=== PATIENT | female | born 1980 | race Two or more races ===

== ENCOUNTER 2019-09-29 09:10 | Emergency (ER) | payer SELFPAY ==
[~2019-09-29] VITALS: Ht 170.2 cm; Wt 74.8 kg
[2019-09-29 09:19] VITALS: BP 113/68
== END 2019-09-29 09:37 | disposition home or self-care (01) ==
LOC: ER 09:10
DX: J06.9 Acute upper respiratory infection, unspecified (principal)

== ENCOUNTER 2024-04-21 00:46 | Emergency (ER) | payer OTHER ==
[~2024-04-21] VITALS: Ht 172.7 cm; Wt 63.0 kg
[2024-04-21] MEDS ORDERED: ONDANSETRON 4 MG TAB.RAPDIS ONE (01:23)
[2024-04-21] MEDS: ONDANSETRON 4 MG TAB.RAPDIS SL ONE (01:25)
[2024-04-21] MEDS ORDERED: FAMOTIDINE/PF INJ 20 MG/2 ML VIAL IV ONE (01:51)
[2024-04-21] MEDS ORDERED: methylPREDNISolone SOD SUCC 125 MG/2ML VIAL ONE (01:51)
[2024-04-21] MEDS ORDERED: diphenhydrAMINE HCL 50 MG/ML VIAL ONE (01:51)
[2024-04-21] MEDS ORDERED: KETOROLAC TROMETHAMINE 15 MG/ML VIAL ONE (01:51)
[2024-04-21] MEDS: methylPREDNISolone SOD SUCC 125 MG/2ML VIAL IV ONE (02:02)
[2024-04-21] MEDS: diphenhydrAMINE HCL 50 MG/ML VIAL IV ONE (02:02)
[2024-04-21] MEDS: KETOROLAC TROMETHAMINE 15 MG/ML VIAL IV ONE (02:02)
[2024-04-21] MEDS: FAMOTIDINE/PF INJ 20 MG/2 ML VIAL IV ONE (02:02)
[2024-04-21] MEDS: IV NS 0.9% 1,000 ML BAG IV ONE (02:02)
[2024-04-21] MEDS ORDERED: PRED50TA PO (03:09)
[2024-04-21] MEDS ORDERED: ONDA4TAB11 PO (03:10)
[2024-04-21] MEDS ORDERED: KETO10TA2 PO (03:10)
[2024-04-21 03:23] VITALS: BP 115/74; O2SAT 97
== END 2024-04-21 03:23 | disposition home or self-care (01) ==
LOC: ER 00:48
DX: T78.49XA Other allergy, initial encounter (principal); L50.9 Urticaria, unspecified; R10.9 Unspecified abdominal pain; R11.2 Nausea with vomiting, unspecified; Z60.2 Problems related to living alone; X58.XXXA Exposure to other specified factors, initial encounter
CPT/HCPCS: 99284; 96374; 96375; 96361; J1200; J3490; J2919; J7030; Q0162; J1885